=== PATIENT | female | born 1955 | race Caucasian/White ===

== ENCOUNTER → 2018-12-10 09:25 | Outpatient (CLI) | payer BC ==
[2010-07-18 06:45] VITALS: BMI 23.4
== END | disposition home or self-care (01) ==
LOC: D.RAD 09:25
PROVIDERS: ATTEND Internal Medicine Gastroenterology
DX: K59.00 Constipation, unspecified (principal)

== ENCOUNTER → 2020-01-27 10:00 | Outpatient (CLI) | payer BC ==
[2010-07-18 06:45] VITALS: BMI 23.4
== END | disposition home or self-care (01) ==
LOC: D.MRI 10:00
PROVIDERS: ATTEND Orthopaedic Surgery
DX: M75.112 Incomplete rotator cuff tear or rupture of left shoulder, not specified as traumatic (principal)

== ENCOUNTER 2020-02-13 07:45 | Day surgery (SDC) | payer BC ==
[2020-02-10 09:22] LABS: HEMATOCRIT 42.5 % (36.0-48.0); HEMOGLOBIN 14.3 g/dL (12-16); MCH 31.1 pg (26.0-34.0); MCHC 33.6 g/dL (31.0-37.0); MCV 92.4 fL (80.0-100.0); MEAN PLATELET VOLUME 9.3 fL (7.4-10.4); RBC 4.6 10x6/uL (4.00-5.40); RDW 13.1 % (11.5-14.5); WBC 4.3 10x3/uL (4.8-10.8)
[~2020-02-13] VITALS: Ht 152.4 cm; Wt 66.2 kg
[~2020-02-13 07:45] MED LIST: CRESTOR10 MG PO; PREVACID30 MG PO
[2020-02-13 08:05] VITALS: BP 170/86; Ht 152.4 cm; Wt 66.2 kg
[2020-02-13] MEDS ORDERED: DILAUDID2 MG PO (11:20)
--- NOTE | 2020-02-13 11:44 | NUR ---
PATIENT DENIES PAIN. STATES "THE BLOCK IS WORKING [employer]"
--- NOTE | 2020-02-13 14:56 | NUR ---
1315 IV D/C'D WITH CANNULA INTACT, PRESSURE HELD, AND DRSG PLACED. DISCHARGE INSTRUCTIONS GIVEN TO BOTH PT AND , BOTH VERBLAIZED AN UNDERSTANDING. DISCHARGED IN STABLE CONDITION, OPERATIVE SITE WITH CDI DRSG, AND W/O C/O
--- NOTE | 2020-03-01 11:33 | OP ---
PATIENT NAME: AMMON SALAZAR MEDICAL RECORD: [id number] LOCATION:[facility] ADMISSION DATE: SURGEON: TONE MENDEZ MD DATE OF OPERATION: 02/13/2020 PREOPERATIVE DIAGNOSES: 1. Impingement syndrome of the left shoulder. 2. Adhesive capsulitis of the left shoulder. 3. Rotator cuff tear of the left shoulder. POSTOPERATIVE DIAGNOSES: 1. Impingement syndrome of the left shoulder. 2. Adhesive capsulitis of the left shoulder. PROCEDURES: 1. Left shoulder arthroscopy with arthroscopic distal clavicle excision down through a separate incision - 1 cm. 2. Arthroscopic subacromial decompression with acromioplasty and bursectomy of the left shoulder. 3. Manipulation of the left shoulder. SURGEON: Tone Mendez MD ANESTHESIA: General. INTRAOPERATIVE COMPLICATIONS: Essentially none. SUMMARY OF PATHOLOGIC FINDINGS: The patient has extreme excoriation of the coracoacromial ligament as well as severe adhesive capsulitis requiring substantial manipulation as well as AC arthropathy. OPERATIVE SUMMARY IN DETAIL: After obtaining the appropriate preoperative orthopedic surgery consent as well as anesthetic consultation, evaluation and clearance, the patient was brought to the operating room and placed on the operating table in supine position. After adequate general laryngeal mask was administered, the patient was placed in the right lateral decubitus position. All pressure points were well padded to include down leg peroneal pad as well as axillary roll. She was held firmly to the operating table using the vacuum pack suction system. Left upper extremity and shoulder were then prepped and draped in routine sterile fashion. Prior to placing her arm in traction, the scapula was stabilized and manipulation was first carried out with abduction followed by external rotation, internal rotation, forward flexion and extension. Excellent release was achieved of this very tight shoulder. The arm was then placed in the Arthrex traction boom at 30 degrees forward flexion, 30 degrees of abduction and 10 pounds of traction laterally. Arthroscopy was established in the glenohumeral joint from posterior portal. Blood from the manipulation was cleared and drained. Anterior portal was established in the anterior safe interval. Diagnostic arthroscopy did not show any evidence of undersurface rotator cuff tearing on the articular aspect. Biceps tendon was in relatively good shape and did not need tenodesis or tenotomy. Attention was then turned to the subacromial space. While in the subacromial space, excoriation of the coracoacromial ligament was again noted. Accessory lateral portal was created through which the [place] tissue ablation system was used to denude the undersurface of the acromion of all soft tissue elements and release the coracoacromial ligament. A 5-0 barrel bur was used to perform acromioplasty at OPERATIVE REPORT [id number] AMMON SALAZAR the level of acromioclavicular joint. Then, through a separate anterior arthroscopic portal, distal clavicle was excised under direct arthroscopic visualization. Having completed this, all bursa was taken down superiorly, anteriorly, laterally and posteriorly. Arthroscopy portals were then closed in routine interrupted fashion using 4-0 Prolene. The patient was awakened and taken to the recovery room in stable condition. All final needle and sponge counts were correct. TRANSINT:[id number] Voice Confirmation ID: [id number] DOCUMENT ID: [id number] ANDREA BARTHOLOMEW, TONE ESTRADA at 1133 CC: [id number] DICTATION DATE: 03/01/20933 IMAGING MANAGER: 03/01/20 1012 [facility] 02/13/20 [facility] [address] [place] [address]
== END 2020-02-13 13:20 | disposition home or self-care (01) ==
LOC: D.OPS 07:45 → D.PAN 09:45 → D.OPS 09:45 → D.PAN 10:45 → D.OPS 12:00
PROVIDERS: Anesthesiology; ATTEND Orthopaedic Surgery
DX: M75.42 Impingement syndrome of left shoulder (principal); M75.02 Adhesive capsulitis of left shoulder; M13.812 Other specified arthritis, left shoulder; S43.432A Superior glenoid labrum lesion of left shoulder, initial encounter; M75.112 Incomplete rotator cuff tear or rupture of left shoulder, not specified as traumatic; M25.512 Pain in left shoulder; R73.03 Prediabetes